=== PATIENT | male | born 1995 | race Caucasian/White ===

== ENCOUNTER 2017-08-01 01:51 | Emergency (ER) | payer OTHER ==
[2017-08-01] MEDS ORDERED: Clindamycin CAP* 150 MG PO ONE (02:26)
[2017-08-01] MEDS ORDERED: Ibuprofen TAB* 800 MG PO ONE (02:27)
[2017-08-01 03:00] VITALS: BP 144/82
--- NOTE | 2017-08-01 03:02 | ED ---
Robert Pop Stephanie, scribed for DontaerogeYossi on 08/01/17 at 0232 . Complex/Multi-Sys Presentation - HPI Summary HPI Summary: Pt is a 22 y/o M presenting to the ED with c/o dental pain located at his bottom left jaw. Symptoms include sore throat and fever. - History Of Current Complaint Chief Complaint: EDDentalPain Time Seen by Provider: 08/01/17 02:23 Hx Obtained From: Patient Onset/Duration: Lasting Days, Still Present Timing: Constant Associated Signs And Symptoms: Positive: Fever, Other - sore throat - Allergies/Home Medications Allergies/Adverse Reactions: Allergies Allergy/AdvReac Type Severity Reaction Status Date / Time Penicillins [PCN] Allergy Unknown Verified 04/02/16 17:28 Reaction Details PMH/Surg Hx/FS Hx/Imm Hx Respiratory History: Reports: Hx Asthma Sensory History: Denies: Hx Deafness Opthamlomology History: Denies: Hx Legally Blind EENT History: Denies: Hx Deafness Infectious Disease History: No Infectious Disease History: Denies: Hx Tuberculosis, Traveled Outside the [place] in Last 30 Days - Family History Known Family History: Positive: Hypertension - Social History Alcohol Use: None Hx Substance Use: No Substance Use Type: Reports: None Smoking Status (MU): Never Smoked Tobacco Review of Systems Positive: Fever Positive: Dental Pain, Sore Throat All Other Systems Reviewed And Are Negative: Yes Physical Exam - Summary Physical Exam Summary: Appearance: Well appearing, no pain distress Skin: warm, dry, reflects adequate perfusion Head/face: normal Eyes: EOMI, CORINA ENT: tenderness over tooth #17. Mild redness over pharynx. Neck: supple, non-tender Respiratory: CTA, breath sounds present Cardiovascular: RRR, pulses symmetrical Abdomen: non-tender, soft Bowel: present Musculoskeletal: normal, strength/ROM intact Neuro: normal, sensory motor intact, A&Ox3 Triage Information Reviewed: Yes Vital Signs On Initial Exam: Initial Vitals Temp Pulse Resp BP Pulse Ox 100.9 F 110 16 151/88 100 08/01/17 01:58 08/01/17 01:58 08/01/17 01:58 08/01/17 01:58 08/01/17 01:58 Vital Signs Reviewed: Yes Diagnostics - Vital Signs Vital Signs Temp Pulse Resp BP Pulse Ox 08/01/17 01:58 100.9 F 110 16 151/88 100 - Laboratory Lab Statement: Any lab studies that have been ordered have been reviewed, and results considered in the medical decision making process. Complex Multi-Symp Course/Dx - Diagnoses Provider Diagnoses: Pain, dental, Pharyngitis Discharge - Discharge Plan Condition: Fair Disposition: HOME Prescriptions: Clindamycin Cap(NF) [Clindamycin Cap 300 mg Cap(NF)] 300 mg PO TID #30 cap Ibuprofen TAB* [Motrin TAB* 600 MG] 600 mg PO Q8H PRN #20 tab MDD 3 PRN Reason: Pain Patient Education Materials: Pharyngitis (ED), Toothache (ED) Referrals: Claudia Mathew DO [Primary Care Provider] - The documentation as recorded by the Robert meadows Stephanie accurately reflects the service I personally performed and the decisions made by Natividad sena Emmanuel.
--- OUTSIDE RECORDS SUMMARY | 2017-08-03 09:51 | XMS REPORT ---
:1995 External Reference #:[id number] Author Organization [facility] Address [address] [place] [address] [place] [address] Phone [phone] Care Team Providers Name Role Phone Mikey Schuster M.D. Primary Care Physician Unavailable Payers Type Date Identification Numbers Payment Provider Subscriber Commercial Effective: Policy Number: Van MGD Tiffani Olsonmaine 2014 [id number] Medicaid PayID: [id number] [address] [[id number]] [place] [address] Problems Date Description Provider Status Onset: 08/26/2011 Overweight David Flanagan C.P.N.P Active Onset: 08/26/2011 Asthma without status asthmaticus David Flanagan C.P.N.P Active Note: follow up at annual well visits Onset: 05/26/2016 Baby premature 32-36 weeks Mikey Schuster M.D. Inactive Inactive: 05/26/2016 Family History Date Family Member(s) Problem(s) Comments Father Celiac disease Mother Hypertension, mom reports heart disease secondary to increased BP and heart murmur, ventricular dysrhythmia Grandmother Hypertension. Stroke at 27 years of age. Social History Type Date Description Comments Lives With Mother And Father Lives With Younger Brothers Lives With Younger Sister Smoke-Free Home is smoke-free Allergies, Adverse Reactions, Alerts Date Description Reaction Status Severity Comments 04/19/2009 Penicillins active Rash Medications Medication Date Status Form Strength Qnty SIG Indications Ordering Provider Cetirizine HCL 02/19/ Active Tablets 10mg 30tabs take one L50.9 2015 tablet by Sharkness mouth daily , C.P.N.P as needed for allergies Ventolin HFA / Active Aerosol 108(90Base 8gm 2 puffs J20.9 2015 ) mcg/Act with spacer Sharkness every 4-6 , C.P.N.P hours as needed (may substitute with least expensive alternative ) Famotidine 03/26/ Hx Tablets 20mg 20tabs 1 by mouth M54.89 Juan Jose 2015 - twice a day Shrivasta 04/05/ Alexandre reddy 2015 Naproxen 03/26/ Hx Tablets 500mg 14tabs 1 tab by M54.89 Juan Jose 2015 - mouth twice Shrivasta 04/05/ a day after Alexandre reddy 2015 meals for 7 days Prednisone 02/19/ Hx Tablets 20mg Unknown 2015 - 2015 Benadryl 02/19/ Hx Tablets 25mg 1 - 2 David 2016 - tablets Sharkness 03/01/ every 6 , C.P.N.P 2016 hours as needed for allergic reaction Proventil HFA / Hx Aerosol 108(90Base 13.4un 2 Puffs J20.9 2015 - ) mcg/Act its Every 4-6 Sharkness / Hours as , C.P.N.P 2015 Needed Dispense One For Home And One For School Azithromycin / Hx Tablets 250mg 6tabs 2 tablets J20.9 2015 - by mouth Sharkness 10/19/ today , C.P.N.P 2015 followed by 1 tablet by mouth daily for 4 days Qvar 09/28/ Hx Aerosol 40mcg/Act 8.7uni inhale 2 493.90 2014 - ts puffs two Sendek, 01/06/ times a day M.D. 2014 as directed Cephalexin 12/21/ Hx Capsules 750mg 20caps 1 po bid 681.02 2013 - Sendek, 12/31/ M.D. 2014 Keflex 06/08/ Hx Capsules 750mg 20caps 1 po bid x 034.0 Seema 2012 - Darryn, 06/18/ C.P.N.P. 2012 Erythromycin/B 05/11/ Hx Gel 5-3% 46.6un Apply To 706.1 David enzoyl 2012 - its Face Every Sharkness Peroxide 08/09/ Evening , C.P.N.P 2011 Cefdinir 09/12/ Hx Capsules 300mg 14caps 1 bid x 7 034.0 Nirav Y. 2011 - , Alexandre MOORE 2011 Benzamycin 08/29/ Hx Gel 5-3% 46.600 apply to 706.1 David 2012 - gm face every Sharkness 05/11/ evening , C.P.N.P 2012 Clindamycin/Be 08/26/ Hx Gel 1-5% 50gm apply every 706.1 David nzoyl Peroxide 2011 - evening Sharkness 08/29/ , C.P.N.P 2011 Proventil HFA 08/26/ Hx Aerosol 108(90Base 13.4un 2 Puffs 493.90 David 2011 - ) mcg/ac its Every 4-6 Sharkness / Hours as , C.P.N.P 2015 Needed Dispense One For Home And One For School Cetirizine HCL 01/25/ Hx Tablets 10mg 30tabs 1 po qd 477.9 Claudia 2009 - [place]cy, 08/27/ D.O. 2012 Bactroban 01/25/ Hx Ointment 2% 22gm apply 703.0 Claudia 2009 - topically [place], 02/01/ tid x 7d D.O. 2009 Clindamycin 01/09/ Hx Capsules 300mg qs 1 cappo tid 682.9 Juan Jose HCL 2009 - pc for 10 Shrivasta 01/18/ pam reddy M.D. 2009 Glycolax 11/27/ Hx Powder [id number] 527gm 17g once a 569.3 Nirav YAlexander 2009 - Lamb, 08/27/ IIIAlexandre 2011 L[place]ide 07/27/ Hx Chewtabs 2.2(1F) mg 30unit 1 po qd Claudia 2009 - s [place], 08/27/ D.O. 2012 Proventil HFA 04/19/ Hx Aerosol 108mcg/Act 2units 2 puffs 493.90 David 2008 - every 4-6 Sharkness 08/26/ hours as , C.P.N.P 2011 needed Dispense one for home and one for school Cephalexin 02/07/ Hx Tablets 500mg 30tabs 1 tid 703.0 Nirav Neal 2009 - Justin, 02/17/ Alexandre MOORE 2009 $4 Rx please Prednisone 05/29/ Hx Tablets 20mg QS 1 Tab PO 466.0 Juan Jose 2008 - bid pc For Shrivasta 06/07/ 4 Day Alexandre reddy 2007 Biaxin 05/29/ Hx Tablets 250mg 20tabs 1 Tab PO 466.0 Juan Jose 2008 - bid pc Shrivasta 06/07/ Alexandre reddy 2007 Albuterol 11/25/ Hx Aerosol 90mcg/Dose 2units 2 puffs q4h 493.90 Claudia Inhalation 2007 - prn [place], 04/19/ D.O. 2008 Xopenex 11/25/ Hx Nebulizer 0.63mg/3ML 72ml 1 unit via 493.90 David 2007 - nebulizer Sharkness 08/02/ q6h prn , C.P.N.P 2010 Singulair / Hx Chew 5mg 30unit Chew 1 493.90 Seema 0000 - s Tablet At [place], 12/15/ Bedtime C.P.N.P. 2008 Immunizations CPT Code Status Date Vaccine Lot # [id number] Given 05/21/2016 Flu Inj Quadrivalent .5ml Preserve Free [id number] 20734 Given 09/27/2013 Meningococcal A,C,Y,W135 (Menactra) [id number] Preservative Free 45220 Given 09/27/2013 Flu Inj Quadrivalent .5ml Preserve Free [id number] 51211 Given 09/27/2013 HPV 4 Gardasil 4 [id number] 27476 Given 09/23/2012 Flu Vacc Preserv Free Trivalent 3+yrs [id number] 00524 Given 09/23/2012 HPV 4 Gardasil 4 [id number] 02440 Given 08/26/2011 Flu Vacc Preserv Free Trivalent 3+yrs [id number] 12528 Given 08/26/2011 HPV 4 Gardasil 4 [id number] 68637 Given 08/26/2011 Hepatitis A Vaccine Pediatric/Adolescent 2 [id number] Dose Schedule 37940 Given 08/02/2010 Hepatitis A Vaccine Pediatric/Adolescent 2 1215z Dose Schedule 37511 Given 08/02/2010 Flu Vacc Preserv Free Trivalent 3+yrs [id number] 94672 Given 08/04/2009 Flu Vacc Preserv Free Trivalent 3+yrs [id number] 57134 Given 04/19/2009 Meningococcal A,C,Y,W135 (Menactra) [id number] Preservative Free 17941 Given 04/19/2009 Varicella (Chicken Pox) Immunization [id number] 58838 Given 06/05/2008 Flu Vacc Preserv Free Trivalent 3+yrs [id number] 51492 Given 12/21/2007 TdaP Immunization Age 7+ [id number] 82814 Given 07/28/2007 Flu Vaccine Age 3+Years [id number] 48917 Given 07/25/2006 Flu Vaccine Age 3+Years [id number] 17410 Given 05/26/2005 Flu Vaccine Age 3+Years 38803 Given 03/30/2001 Hib Vaccine 64022 Given 03/30/2001 DTaP Immunization under age 7 20914 Given 03/30/2001 MMR Virus Immunization 88714 Given 03/30/2001 Poliomyelitis Immunization 82036 Given 08/02/1998 Varicella (Chicken Pox) Immunization 52816 Given 05/22/1998 DTaP Immunization under age 7 52239 Given 01/22/1998 Poliomyelitis Immunization 85250 Given 01/22/1998 MMR Virus Immunization 83432 Given 01/22/1998 Hib Vaccine 78099 Given 1997 DTaP Immunization under age 7 49353 Given 1997 Hepatitis B Imm Age 0 to 19yr 66833 Given 1997 Poliomyelitis Immunization 03274 Given 1997 DTaP Immunization under age 7 87905 Given 1997 Hib Vaccine 92382 Given 1997 Hepatitis B Imm Age 0 to 19yr 83856 Given 1997 Poliomyelitis Immunization 85994 Given 1997 DTaP Immunization under age 7 41924 Given 1997 Hib Vaccine 59764 Given 1997 Hepatitis B Imm Age 0 to 19yr Vital Signs Date Vital Result Comment 07/08/2017 Weight 263.00 lb Weight in kg's 119.297 Body Temperature 97.4 F 05/21/2016 Height 64.75 inches 5'4.75" Weight 250.50 lb Weight in kg's 113.627 Heart Rate 70 /min BP Systolic 121 mmHg BP Diastolic 78 mmHg BMI (Body Mass Index) 42.0 kg/m2 Body Mass Index Percentile 3 % Right ear audiology results 20 db Left ear audiology results 20 db Left Visual Acuity Distance 20/20-1 Right Visual Acuity Distance 20/25-1 03/26/2016 Weight 247.00 lb Weight in kg's 112.039 Body Temperature 97.2 F Heart Rate 74 /min BP Systolic 115 mmHg BP Diastolic 77 mmHg 02/20/2016 Weight 248.50 lb Weight in kg's 112.720 Body Temperature 98.1 F Heart Rate 81 /min BP Systolic 139 mmHg BP Diastolic 72 mmHg 02/13/2016 Weight 244.62 lb Weight in kg's 110.962 Heart Rate 81 /min BP Systolic 126 mmHg BP Diastolic 78 mmHg 01/28/2016 Weight 246.00 lb Weight in kg's 111.586 Body Temperature 97.6 F Heart Rate 81 /min BP Systolic 135 mmHg BP Diastolic 85 mmHg 01/18/2016 Weight 244.12 lb Weight in kg's 110.735 Body Temperature 97.6 F BP Systolic 128 mmHg BP Diastolic 72 mmHg 10/15/2015 Weight 248.00 lb Weight in kg's 112.493 Weight Percentile >97th Body Temperature 98.1 F Heart Rate 70 /min O2 % BldC Oximetry 96 % 08/27/2015 Weight 246.00 lb Weight in kg's 111.586 Weight Percentile >97th Body Temperature 98.1 F 04/11/2015 Height 64.25 inches 5'4.25" Height Percentile 4 % Weight 238.12 lb Weight in kg's 108.014 Weight Percentile >97th Heart Rate 90 /min BP Systolic 123 mmHg BP Diastolic 62 mmHg Blood Pressure Percentile 75 % BMI (Body Mass Index) 40.6 kg/m2 Body Mass Index Percentile 99 % 01/09/2015 Height 65 inches 5'5" Height Percentile 6 % Weight 242.00 lb Weight in kg's 109.771 Weight Percentile >97th Body Temperature 97.6 F Heart Rate 59 /min BP Systolic 111 mmHg BP Diastolic 71 mmHg Blood Pressure Percentile 31 % BMI (Body Mass Index) 40.3 kg/m2 Body Mass Index Percentile 99 % 09/28/2014 Weight 238.00 lb Weight in kg's 107.957 Weight Percentile >97th Body Temperature 96.4 F Heart Rate 138 /min O2 % BldC Oximetry 97 % 12/21/2013 Weight 226.00 lb Weight in kg's 102.514 Weight Percentile >97th Body Temperature 98.2 F 09/27/2013 Height 64.5 inches 5'4.50" Height Percentile 7 % Weight 220.00 lb Weight in kg's 99.792 Weight Percentile >97th Heart Rate 76 /min BP Systolic 121 mmHg BP Diastolic 70 mmHg Blood Pressure Percentile 75 % BMI (Body Mass Index) 37.2 kg/m2 Body Mass Index Percentile 99 % 09/22/2013 Weight 220.00 lb Weight in kg's 99.792 Weight Percentile >97th Body Temperature 98.7 F Heart Rate 88 /min BP Systolic 142 mmHg BP Diastolic 72 mmHg Blood Pressure Percentile 0 % 06/08/2013 Weight 212.00 lb Weight in kg's 96.163 Weight Percentile >97th Body Temperature 97.9 F 09/23/2012 Height 64 inches 5'4" Height Percentile 10 % Weight 206.00 lb Weight in kg's 93.442 Weight Percentile >97th Heart Rate 64 /min BP Systolic 114 mmHg BP Diastolic 66 mmHg Blood Pressure Percentile 57 % BMI (Body Mass Index) 35.4 kg/m2 Body Mass Index Percentile 99 % 09/12/2011 Weight 192.50 lb W/clothes & shoes Weight in kg's 87.318 Weight Percentile >97th Body Temperature 98.3 F Blood Pressure Percentile 0 % 08/26/2011 Height 63.5 inches 5'3.50" Height Percentile 22 % Weight 191.00 lb Weight in kg's 86.638 Weight Percentile >97th Heart Rate 72 /min BP Systolic 120 mmHg BP Diastolic 60 mmHg Blood Pressure Percentile 80 % BMI (Body Mass Index) 33.3 kg/m2 Body Mass Index Percentile 99 % 11/04/2010 Weight 174.00 lb Weight in kg's 78.926 Weight Percentile >97th Body Temperature 97.8 F Blood Pressure Percentile 0 % 08/02/2010 Height 62.25 inches 5'2.25" Height Percentile 40 % Weight 171.50 lb Weight in kg's 77.792 Weight Percentile >97th Heart Rate 64 /min BP Systolic 114 mmHg BP Diastolic 64 mmHg Blood Pressure Percentile 66 % BMI (Body Mass Index) 31.1 kg/m2 Body Mass Index Percentile 98 % 01/25/2010 Weight 159.00 lb Weight in kg's 72.122 Weight Percentile 97th Body Temperature 97.4 F Blood Pressure Percentile 0 % 01/18/2010 Weight 160.00 lb Weight in kg's 72.576 Weight Percentile 97th Body Temperature 97.6 F Blood Pressure Percentile 0 % 01/09/2010 Weight 162.00 lb Weight in kg's 73.483 Weight Percentile >97th Body Temperature 97.4 F Blood Pressure Percentile 0 % 11/27/2009 Height 60.75 inches 5'0.75" Height Percentile 47 % Weight 158.00 lb Weight in kg's 71.669 Weight Percentile 97th BP Systolic 140 mmHg BP Diastolic 60 mmHg Blood Pressure Percentile 99 % BMI (Body Mass Index) 30.1 kg/m2 Body Mass Index Percentile 98 % 04/19/2009 Height 58.75 inches 4'10.75" Height Percentile 43 % Weight 148.00 lb Weight in kg's 67.133 Weight Percentile >97th Heart Rate 88 /min BP Systolic 110 mmHg BP Diastolic 70 mmHg Blood Pressure Percentile 62 % BMI (Body Mass Index) 30.1 kg/m2 Body Mass Index Percentile 99 % 02/07/2009 Weight 154.00 lb Weight in kg's 69.854 Weight Percentile >97th Body Temperature 97.5 F Blood Pressure Percentile 0 % 05/29/2008 Weight 136.00 lb Weight in kg's 61.690 Weight Percentile >97th Body Temperature 97.8 F 12/21/2007 Height 55 inches 4'7" Height Percentile 31 % Weight 122.00 lb Weight in kg's 55.339 Weight Percentile >95th Heart Rate 72 /min BP Systolic 112 mmHg BP Diastolic 58 mmHg BMI (Body Mass Index) 28.4 kg/m2 Body Mass Index Percentile 95 % 11/23/2007 Weight 127.50 lb Weight in kg's 57.834 Weight Percentile >95th Body Temperature 99.7 F 07/05/2007 Weight 117.38 lb Weight in kg's 53.241 Weight Percentile >95th Body Temperature 7.2 F 11/25/2006 Height 53.25 inches 4'5.25" Height Percentile 35 % Weight 111.00 lb Weight in kg's 50.350 Weight Percentile >95th BMI (Body Mass Index) 27.5 kg/m2 Body Mass Index Percentile 95 % 10/12/2006 Weight 115.00 lb Weight in kg's 52.164 Weight Percentile >95th Body Temperature 98.3 F Results Test Date Test Result H/L Range Note Laboratory test finding 07/08/2017 .Strep A, Rapid neg Laboratory test finding 03/26/2016 .Urine Culture In negative <100k House PT/PTT Mixing Studies 03/21/2016 Inr 1.03 0.89-1.11 Activated Partial Thrombo Time 36.0 seconds 26.0-36.3 PT/Normal Control TNP seconds 10.0-12.6 1 PT/After 1 Hour Incubation TNP seconds 10.0-12.6 2 PTT/Normal Control TNP seconds 26.0-36.3 3 PTT/After 1 HR Incubation TNP seconds 26.0-36.3 4 PT/PTT Mixing Study Interp (SEE NOTE) 5 Lupus Anticoagulant AB 03/21/2016 Prothrombin Time(Lac) 11.3 sec 6 Lac Inr 1.0 Lac Aptt 34 sec 26 - 36 Lac DRVVT Screen Ratio 1.0 ratio 0.0 - 1.1 Lupus Anticoagulant Interpreta See Comment 7 Laboratory test finding 03/21/2016 Coagulation Factor IX 97 % 65 - 140 8 Coagulation Factor XI 105 % 55 - 150 9 Factor 8 Profile 03/21/2016 Coagulation Factor VIII Activi 93 % 55 - 200 von Willebrand Factor Antigen 71 % 55 - 200 VonWillibrand Factor Activity 68 % 55 - 200 von Willebrand Panel Interp See Comment 10 Laboratory test finding 03/21/2016 Factor XII Activity 87 % 55 - 180 11 Factor 5 Leiden Mutation 03/21/2016 Factor V Leiden Mutation Negative Negative Factor V Leiden Interpretation See Comment 12 Factor V Leiden Reviewed By Samia Horta M.D. 13 CBC Auto Diff 02/13/2016 White Blood Count 7.6 10^3/uL 3.5-10.8 Red Blood Count 5.29 10^6/uL 4.0-5.4 Hemoglobin 15.4 g/dL 14.0-18.0 Hematocrit 46 % 42-52 Mean Corpuscular Volume 87 fL 80-94 Mean Corpuscular Hemoglobin 29 pg 27-31 Mean Corpuscular HGB Conc 33 g/dL 31-36 Red Cell Distribution Width 14 % 10.5-15 Platelet Count 193 10^3/uL 150-450 Mean Platelet Volume 10 um3 7.4-10.4 Abs Neutrophils 5.2 10^3/uL 1.5-7.7 Abs Lymphocytes 1.6 10^3/uL 1.0-4.8 Abs Monocytes 0.7 10^3/uL 0-0.8 Abs Eosinophils 0.1 10^3/uL 0-0.6 Abs Basophils 0 10^3/uL 0-0.2 Abs Nucleated RBC 0 10^3/uL Granulocyte % 68.0 % 38-83 Lymphocyte % 21.4 % Low 25-47 Monocyte % 8.9 % 1-9 Eosinophil % 1.5 % 0-6 Basophil % 0.2 % 0-2 Nucleated Red Blood Cells % 0 Laboratory test finding 02/13/2016 C Reactive Protein 5.43 mg/L High < 5.00 14 Partial Thrombo Time PTT 37.9 seconds High 26.0-36.3 Inr/Protime 02/13/2016 Inr 1.09 0.89-1.11 Urinalysis Profile 01/18/2016 Urine Color Yellow Urine Appearance Clear Urine Specific [place] 1.020 1.010-1.030 Urine pH 6.0 5-9 Urine Urobilinogen Negative Negative Urine Ketones Negative Negative Urine Protein Negative Negative Urine Leukocytes Negative Negative Urine Blood Negative Negative Urine Nitrite Negative Negative Urine Bilirubin Negative Negative Urine Glucose Negative Negative Laboratory test finding 01/18/2016 Erythrocyte Sed Rate 14 mm/Hr 0-14 Connective Tissue Panel 01/18/2016 Anti-Nuclear Antibody 0.2 U 15 Cyclic Citrullinated Peptide <15.6 U 16 Interpretation See Comment 17 Inr/Protime 01/18/2016 Inr 1.05 0.89-1.11 Laboratory test finding 01/18/2016 C Reactive Protein 7.53 mg/L High < 5.00 18 Partial Thrombo Time PTT 37.3 seconds High 26.0-36.3 Comp Metabolic Panel 01/18/2016 Sodium 137 mmol/L 133-145 Potassium 4.3 mmol/L 3.5-5.0 Chloride 104 mmol/L 101-111 Co2 Carbon Dioxide 27 mmol/L 22-32 Anion Gap 6 mmol/L 2-11 Glucose 93 mg/dL 70-100 Blood Urea Nitrogen 14 mg/dL 6-24 Creatinine 0.95 mg/dL 0.67-1.17 BUN/Creatinine Ratio 14.7 8-20 Calcium 10.0 mg/dL 8.6-10.3 Total Protein 7.8 g/dL 6.4-8.9 Albumin 4.5 g/dL 3.2-5.2 Globulin 3.3 g/dL 2-4 Albumin/Globulin Ratio 1.4 1-3 Total Bilirubin 0.30 mg/dL 0.2-1.0 Alkaline Phosphatase 73 U/L 34-104 Alt 32 U/L 7-52 Ast 26 U/L 13-39 Egfr Non- 102.1 >60 Egfr 131.3 >60 19 CBC Auto Diff 01/18/2016 White Blood Count 7.1 10^3/uL 3.5-10.8 Red Blood Count 5.58 10^6/uL High 4.0-5.4 Hemoglobin 16.1 g/dL 14.0-18.0 Hematocrit 50 % 42-52 Mean Corpuscular Volume 90 fL 80-94 Mean Corpuscular Hemoglobin 29 pg 27-31 Mean Corpuscular HGB Conc 32 g/dL 31-36 Red Cell Distribution Width 14 % 10.5-15 Platelet Count 199 10^3/uL 150-450 Mean Platelet Volume 10 um3 7.4-10.4 Abs Neutrophils 4.6 10^3/uL 1.5-7.7 Abs Lymphocytes 1.7 10^3/uL 1.0-4.8 Abs Monocytes 0.7 10^3/uL 0-0.8 Abs Eosinophils 0.1 10^3/uL 0-0.6 Abs Basophils 0 10^3/uL 0-0.2 Abs Nucleated RBC 0 10^3/uL Granulocyte % 64.5 % 38-83 Lymphocyte % 24.4 % Low 25-47 Monocyte % 9.3 % High 1-9 Eosinophil % 1.4 % 0-6 Basophil % 0.4 % 0-2 Nucleated Red Blood Cells % 0.1 Laboratory test finding 08/27/[address] test In House neg .Throat Culture Quick Strep neg .Throat Culture Overnight neg Laboratory test finding 04/11/2015 .Hemoglobin in house not done Laboratory test finding 09/23/2012 Hemoglobin 15.0 Laboratory test finding 08/27/2011 Endomysial Abs Negative Negative 20 Tranglutaminase 08/27/2011 Transglutaminase Iga <1.2 U/mL () 21 Igg,Igm,Iga Transglutaminase Igg 1.6 U/mL () 22 CBC With Manual Diff 08/27/2011 White Blood Count 5.4 CUMM 4.8-10.8 Red Cell Count 4.94 CUMM 4.6-6.2 Hemoglobin 15.2 g/dL 14.0-18.0 Hematocrit 44 % 42-52 Mean Corpuscular Volume 88 um3 80-94 Mean Corpuscular Hemoglob 31 pg 27-31 Mean Corpuscular HGB Cone 35 g/dL 32-36 Redcell Distribution WDTH 13 % 10.5-15 Platelet Count 163 CUMM 150-450 Mean Platelet Volume 10.3 um3 7.4-10.4 Polysegmented Neutrophil 63 % 38-83 Lymphocyte 25 % 25-47 Monocyte 9 % 0-13 Eosinophil 1 % 0-6 Atypical Lymph 2 % 0-6 Absolute Neutrophil Count 3.4 Anisocytosis SLIGHT Laboratory test finding 08/27/2011 Rheumatoid Factor < 15 IU/mL < 15 23 Erythrocyte Sed Rate 1 MM/HR 0-15 Marsha (Antinuclear Antibodies) 08/27/2011 Antinuclear AB NEGATIVE Negative Thyroid Panel 08/15/2010 Free Thyroxine 0.83 NG/ML 0.61-1.24 Thyroxine 6.6 g/dL 5-12 TSH 3.47 MIU/ML 0.34-5.60 Laboratory test finding 08/02/2010 Hemoglobin 13.5 Thyroid Panel 11/28/2009 Free Thyroxine 0.76 NG/ML 0.61-1.24 24 Thyroxine 8.1 g/dL -12 TSH 3.11 MIU/ML 0.34-5.60 Thyroid Autoantibodies 08/15/2009 Thyroglobulin AB Screen <1.8 IU/mL & lt;4.0 25 Thyroperoxidase AB 0.7 IU/mL <9.0 Laboratory test finding 08/15/2009 Thyroxine Free 0.67 NG/ML 0.61-1.24 26 TSH 3.98 MIU/ML 0.34-5.60 Basic Metabolic Panel 07/30/2009 Sodium 137 mmol/L 135-145 Potassium 4.3 mmol/L 3.6-5.2 Chloride 107 mmol/L 101-111 Co2 (Carbon Dioxide) 23.0 mmol/L 22-32 Anion Gap 7.0 mmol/L 2-11 27 Glucose 85 mg/dL 70-100 28 BUN 14 mg/dL 6-24 Creatinine 0.50 mg/dL 0.50-1.40 One Over Creatinine 2.00 BUN/Creatinine Ratio 28.0 High 8-20 Calcium 9.6 mg/dL 8.1-9.9 29 Laboratory test finding 07/30/2009 TSH 6.51 MIU/ML High 0.34-5.60 Thyroxine 8.1 g/dL 5-12 Lipid Profile (Trig/Chol/HDL) 07/30/2009 Triglyceride 86 mg/dL 40-200 Cholesterol 126 mg/dL 100-175 High Density Lipoprotein 27 mg/dL Low 40-60 30 Cholesterol/HDL Ratio 4.67 AVERAGE 1-4.97 Low Density Lipoprotein 82 mg/dL Less Than 100 31 Laboratory test finding 11/25/2006 Hemoglobin 13.9 1 Mixing Study not completed - INR and APTT within normal limits - correction not indicated. 2 Mixing Study not completed - INR and APTT within normal limits - correction not indicated. 3 Mixing Study not completed - INR and APTT within normal limits - correction not indicated. 4 Mixing Study not completed - INR and APTT within normal limits - correction not indicated. 5 Normal PTT / PT. Reviewed by: Anastasia Rubio MD 6 REFERENCE VALUE 10.3 - 12.8 7 No evidence of a lupus-like anticoagulant based on results of Prothrombin Time (PT), Activated Partial Thromboplastin Time (APTT), and Dilute [place] Vi[place] Venom Time (DRVVT). Interpretation not reviewed by physician. Test Performed by: [place] [address] Sediment Remediation Consultant: Mckay Crain II, M.D., Ph.D. 8 Test Performed by: [place] [address] Sediment Remediation Consultant: Mckay Crain II, M.D., Ph.D. 9 Test Performed by: [place] [address] Sediment Remediation Consultant: Mckay Crain II, M.D., Ph.D. 10 No laboratory evidence of von Willebrand's disease based on normal results of factor VIII activity, von Willebrand factor activity, and von Willebrand factor antigen. Note: von Willebrand factor antigen and activity and/or factor VIII may be increased above baseline levels by acute or chronic inflammation, stress or adrenergic stimuli, or estrogen and oral contraceptive therapy, or liver disease. Recent administration of desmopressin or von Willebrand factor concentrate may mask the diagnosis of von Willebrand's disease. Suggest clinical correlation. Interpretation not reviewed by physician. Test Performed by: [place] [address] Sediment Remediation Consultant: Mckay Crain II, M.D., Ph.D. 11 Test Performed by: [place] [address] Sediment Remediation Consultant: Mckay Crain II, M.D., Ph.D. 12 This individual DOES NOT have the factor V Leiden (R506Q) mutation. Although the factor V Leiden mutation is absent, the individual may have other genetic and environmental risk factors for thrombosis. If clinically indicated, consider Coagulation Consultation 28058 (Thrombophilia Profile) to complete the evaluation for an inherited or acquired thrombosing disorder (i.e., thrombophilia). ADDITIONAL INFORMATION This test is a direct mutation analysis using PCR amplification, signal generation and release by cleavage of sequence specific alleles ([employer], [employer], [place], [place]). 13 Test Performed by: [place] [address] Sediment Remediation Consultant: Mckay Crain II, M.D., Ph.D. 14 Acute inflammation: >10.00 15 REFERENCE VALUE <=1.0 (Negative) 16 REFERENCE VALUE <20.0 (Negative) 17 Tests for antibodies to dsDNA and BILLY antigens are not performed automatically unless the MARSHA result is > or= 3.0 U. Studies performed at [facility] indicate that positive MARSHA results <3.0 U are rarely accompanied by positive second order tests. Test Performed by: [place] [address] Sediment Remediation Consultant: Mckay Crain II, M.D., Ph.D. 18 Acute inflammation: >10.00 19 Because ethnic data is not always readily available, this report includes an eGFR for both -Americans and non- Americans. The National Kidney Disease Education Program (NKDEP) does not endorse the use of the MDRD equation for patients that are not between the ages of 18 and 70, are , have extremes of body size, muscle mass, or nutritional status, or are non- or non-. According to the National Kidney Foundation, irrespective of diagnosis, the stage of the disease is based on the level of kidney function: Stage Description GFR(mL/min/1.73 m(2)) 1 Kidney damage with normal or decreased GFR 90 2 Kidney damage with mild decrease in GFR 60-89 3 Moderate decrease in GFR 30-59 4 Severe decrease in GFR 15-29 5 Kidney failure <15 (or dialysis) 20 Negative in normal Individuals. May be negative in dermatitis herpatiformis or celiac disease patients adhering to a gluten free diet. Laboratory developed test. Test Performed by: [facility] Dpt of Lab Med and Pathology [address] [place] [address] Sediment Remediation Consultant: Boston Helms III, M.D. 21 -- REFERENCE VALUE -- <4.0 (Negative) Test Performed by: [facility] Med [facility] Pathology [address] [place] [address] Sediment Remediation Consultant: Boston Helms III, M.D. 22 -- REFERENCE VALUE -- <6.0 (Negative) Test Performed by: [facility] [facility] [address] [place] [address] Sediment Remediation Consultant: Boston Helms III, M.D. 23 Test Performed by: [facility] [address] [place] [address] Sediment Remediation Consultant: Boston Helms III, M.D. 24 PLEASE NOTE NEW REFERENCE RANGES. 25 Test Performed by: [facility] [address] [id number] Sediment Remediation Consultant: Boston Helms III, M.D. 26 PLEASE NOTE NEW REFERENCE RANGES. 27 Anion gap measurement may be of limited value in the presence of any alkalosis, especially in a combined acid base disorder. . 28 Note change in reference range as of 04/06/08. The change was based on recommendations from the [employer]. 29 Please note change in reference range effective 08 . 30 HDL INTERPRETATION: Undesirable: High Risk: Less than 40 MG/DL Desirable: Low Risk: Greater than 60 MG/DL 31 LDL INTERPRETATION: Low Risk Optimal Level: LDL Less than 100 MG/DL Near or Above Optimal: LDL 100-129 MG/DL Borderline High Risk: LDL 130-159 MG/DL High Risk: LDL 160-189 MG/DL Very High Risk: LDL Greater than 189 MG/DL Procedures Description No Information Encounters Type Date Location Provider CPT E/M Dx Office Visit 07/08/2017 3:00p [facility] Office Mikey Schuster M.D. 93351 R07.0 Office Visit 05/21/2016 10:00a [facility] Office Mikey Schuster M.D. 51692 Z00.8 E66.01 J45.909 Z13.89 Z00.8 Office Visit 03/26/2016 2:00p [facility] Juan Jose Donovan M.D. 24875 M54.89 Office Visit 02/20/2016 1:00p Main Office Sahji AbelP.N.P 17139 L50.9 Office Visit 02/13/2016 12:45p [facility] Dallin Abel.P.N.P 78595 R23.3 R21 Office Visit 01/28/2016 2:00p [facility] Shaji AbelP.N.P 47322 R21 R23.3 Office Visit 01/18/2016 12:15p [facility] Dallin Abel.P.N.P 59137 R21 R23.3 Office Visit 10/15/2015 12:30p [facility] David Flanagan C.P.NBipin 30508 J20.9 Office Visit 08/27/2015 4:15p [facility] Mikey Schuster M.D. 39223 J03.90 Office Visit 04/11/2015 3:30p [facility] Mikey Schuster M.D. 51853 V70.9 493.90 278.01 Office Visit 01/09/2015 8:45a Main Office Mikey Schuster M.D. 22038 703.0 Office Visit 09/28/2014 11:45a Main Office Mikey Schuster M.D. 64643 465.9 493.90 Office Visit 12/21/2013 2:30p [facility] Mikey Schuster M.D. 71775 681.02 Office Visit 09/27/2013 3:30p Main Office Mikey Schuster M.D. 86982 V20.2 493.90 309.1 278.00 Office Visit 09/22/2013 10:00a Main Office Mikey Schuster M.D. 30161 309.1 313.3 Office Visit 06/08/2013 12:15p Main Office Seema Cates C.P.NCorky 78929 034.0 Office Visit 09/23/2012 3:00p [facility] Office David Flanagan C.P.N.P 60409 V20.2 493.90 278.02 564.00 Office Visit 09/12/2011 10:30a Main Office Nirav Anderson III, M.D. 47538 034.0 Office Visit 08/26/2011 3:00p [facility] Office David Flanagan C.P.N.P 33007 V20.2 278.02 493.90 564.00 706.1 719.41 Office Visit 11/04/2010 5:15p Main Office Claudia Mathew D.O. 36305 V65.5 Office Visit 08/02/2010 3:00p [facility] Office David Flanagan C.P.NAlexanderP 68115 V20.2 278.02 493.90 Office Visit 01/25/2010 10:30a Main Office Claudia Mathew D.O. 75903 703.0 477.9 Office Visit 01/18/2010 3:15p [facility] Office Juan Jose Donovan M.D. 69402 682.9 Office Visit 01/09/2010 4:15p [facility] Office Juan Jose Donovan M.D. 14547 682.9 Office Visit 11/27/2009 1:00p [facility] Office Nirav Anderson III, M.D. 14674 569.3 Office Visit 04/19/2009 9:30a [facility] Office Claudia Mathew D.O. 04005 V20.2 Office Visit 02/07/2009 4:15p Main Office Nirav Anderson III, M.D. 51882 703.0 Office Visit 05/29/2008 12:00p Main Office Juan Jose Donovan M.D. 76939 466.0 Office Visit 12/21/2007 11:00a Main Office Claudia Mathew D.O. 62517 V20.2 Office Visit 11/23/2007 4:15p Main Office Nirav Anderson III, M.D. 51851 844.8 Office Visit 07/05/2007 8:30a Main Office Nirav Anderson III, M.D. 08670 845.13 Office Visit 11/25/2006 11:30a Main Office Claudia Mathew D.O. 47325 V20.2 493.90 Office Visit 10/12/2006 11:15a Main Office Juan Jose Donovan M.D. 78203 788.1 Office Visit 10/31/2005 11:15a Main Office Leonid Mariano 93555 780.50 Office Visit 05/26/2005 11:00a Main Office Claudia Mathew D.O. 28957 V20.2 Office Visit 11/14/2004 9:30a Main Office Mikey Schuster M.D. 24859 465.9 493.90 Office Visit 11/04/2004 10:30a Main Office Juan Jose Donovan M.D. 19870 461.9 Plan of Care 07/08/2017 - Mikey Schuster M.D.R07.0 Pain in throatComments:Symptomatic treatment ( rest, Ibuprofen or Tylenol,fluids)Follow up:as needed
== END 2017-08-01 02:58 | disposition home or self-care (01) ==
LOC: ED 01:51
DX: K08.89 Other specified disorders of teeth and supporting structures (principal); J02.9 Acute pharyngitis, unspecified
CPT/HCPCS: 99282; A9270-GY

== ENCOUNTER 2017-10-15 13:14 | Emergency (ER) | payer OTHER ==
[2017-10-15 13:21] VITALS: BP 138/89
--- NOTE | 2017-10-15 13:23 | UC ---
FLU HPI - HPI Summary HPI Summary: Pt presents with body aches and dry cough since yesterday. He tells me that his girlfriend and several family members have been diagnosed with the flu and he is concerned that he has it as well. Has not taken anything OTC. Has felt warm, but doesn't think he has had a fever. Denies chills, sore throat, chest pain, abdominal pain, n/v/d/c. - History of Current Complaint Chief Complaint: UCRespiratory Stated Complaint: cough, and fever Hx Obtained From: Patient Onset/Duration: Sudden Onset Severity Currently: None Pain Intensity: 0 - Allergy/Home Medications Allergies/Adverse Reactions: Allergies Allergy/AdvReac Type Severity Reaction Status Date / Time Penicillins Allergy Rash Verified 10/15/17 13:22 PMH/Surg Hx/FS Hx/Imm Hx Previously Healthy: Yes - Surgical History Surgical History: None - Family History Known Family History: Positive: Hypertension - Social History Alcohol Use: None Substance Use Type: None Smoking Status (MU): Never Smoked Tobacco Review of Systems Constitutional: Other - Body aches Skin: Negative Eyes: Negative ENT: Negative Respiratory: Cough Cardiovascular: Negative Gastrointestinal: Negative Neurological: Negative Psychological: Negative All Other Systems Reviewed And Are Negative: Yes Physical Exam - Summary Physical Exam Summary: GENERAL: NAD. WDWN. No pain distress. SKIN: No rashes, sores, ulcers, masses, lesions. No clubbing or cyanosis. HEENT: Head: AT/NC Eyes: EOM intact. Conjunctiva clear without inflammation or discharge. Ears: Hearing grossly normal. TMs intact, no bulging, erythema, or edema. Nose: Nasal mucosa pink and moist. NTTP maxillary and frontal sinus. Throat: Posterior oropharynx without exudates, erythema, or tonsillar enlargement. Uvula midline. NECK: Supple. Nontender. No lymphadenopathy. CHEST: CTAB. No r/r/w. No accessory muscle use. Breathing comfortably and in no distress. CV: RRR. Without m/r/g. Pulses intact. Brisk cap refill. NEURO: Alert. CN II-XII grossly intact. PSYCH: Age appropriate behavior. Triage Information Reviewed: Yes Vital Signs: Initial Vital Signs Temp 98.7 F 10/15/17 13:19 Pulse 92 10/15/17 13:19 Resp 16 10/15/17 13:19 BP 138/89 03/01/18 13:19 Pulse Ox 99 10/15/17 13:19 Flu Course/Dx - Course Course Of Treatment: POC flu negative. Advised to continue with rest, fluids, and ibuprofen prn discomfort/fever. - Differential Dx/Diagnosis Provider Diagnoses: Cough Discharge - Discharge Plan Condition: Stable Disposition: HOME Referrals: Claudia Mathew DO [Primary Care Provider] - Additional Instructions: If you develop a fever, shortness of breath, chest pain, new or worsening symptoms - please call your PCP or go to the ED. Your blood pressure was high at todays visit. Please see your primary provider within 4 weeks for recheck and re-evaluation.
== END 2017-10-15 13:54 | disposition home or self-care (01) ==
LOC: UCEAST 13:14
DX: R05 Cough (principal); M79.1 Myalgia; Z88.0 Allergy status to penicillin
CPT/HCPCS: 87502; 99211; G0463

== ENCOUNTER 2017-10-17 19:18 | Emergency (ER) | payer OTHER ==
[2017-10-17 20:41] VITALS: BP 197/56
--- NOTE | 2017-10-17 20:44 | UC ---
FLU HPI - HPI Summary HPI Summary: c/o fever, chills, nasal congestion, dry cough for 3 days, girlfriend was diagnosed with influenza and wants to be tested again - History of Current Complaint Chief Complaint: UCRespiratory Stated Complaint: FEVER,COUGH,VOMITING Time Seen by Provider: 10/17/17 19:51 Hx Obtained From: Patient Onset/Duration: Gradual Onset, Lasting Days Severity Currently: Mild Severity Initially: Moderate Pain Intensity: 6 Associated Signs & Symptoms: Positive: Fever, Myalgia, Cough, Nasal Congestion Related Hx: Smoking Exposure - Allergy/Home Medications Allergies/Adverse Reactions: Allergies Allergy/AdvReac Type Severity Reaction Status Date / Time Penicillins Allergy Rash Verified 10/17/17 19:29 PMH/Surg Hx/FS Hx/Imm Hx Previously Healthy: Yes - Surgical History Surgical History: None - Family History Known Family History: Positive: Hypertension - Social History Alcohol Use: None Substance Use Type: None Smoking Status (MU): Never Smoked Tobacco Review of Systems Constitutional: Fever, Chills ENT: Nasal Discharge Respiratory: Cough All Other Systems Reviewed And Are Negative: Yes Physical Exam Triage Information Reviewed: Yes Appearance: Ill-Appearing, Obese Vital Signs: Initial Vital Signs Temp 98.7 F 10/17/17 19:26 Pulse 113 10/17/17 19:26 Resp 18 10/17/17 19:26 BP 142/86 10/17/17 19:26 Pulse Ox 98 10/17/17 19:26 Vital Signs Reviewed: Yes Eyes: Positive: Conjunctiva Clear ENT: Positive: Pharynx normal, TMs normal Neck: Positive: Supple, Nontender, No Lymphadenopathy Respiratory: Positive: Chest non-tender, Lungs clear, Normal breath sounds, No respiratory distress, No accessory muscle use Cardiovascular: Positive: RRR, No Murmur, Pulses Normal, Brisk Capillary Refill Abdomen Description: Positive: Nontender Flu Course/Dx - Course Course Of Treatment: continue oral hydration and rest, hand hygiene. tylenol / ibuprofen if fever is greater than 101.5F - Differential Dx/Diagnosis Provider Diagnoses: Influenza A Discharge - Discharge Plan Condition: Stable Disposition: HOME Patient Education Materials: Influenza (DC) Referrals: Claudia Mathew DO [Primary Care Provider] -
== END 2017-10-17 21:03 | disposition home or self-care (01) ==
LOC: UCEAST 19:18
DX: J10.1 Influenza due to other identified influenza virus with other respiratory manifestations (principal); Z88.0 Allergy status to penicillin
CPT/HCPCS: 87502; 99211; G0463